=== PATIENT | female | born 1935 | race Caucasian/White ===

== ENCOUNTER → 2017-08-09 | Outpatient (CLI) | payer OTHER ==
[~2017-08-09] MED LIST: ASPI81EC; CALCA500CH PO; CHOL10002 PO; FISH1000 PO; FOLI400 PO; GABA300 PO; HYDACE10 PO; HYDCHL12.5 PO; HYDROMET SYRUP PO; IBUPROFEN 200MG PO; LOSA50 PO; METO50; MULVIT PO; MULVITB&C; OMEP20ER PO
== END | disposition home or self-care (01) ==
LOC: LAB 12:15
DX: N39.0 Urinary tract infection, site not specified (principal); R30.0 Dysuria
CPT/HCPCS: 87077; 87086

== ENCOUNTER → 2017-12-31 | Outpatient (CLI) | payer OTHER | END | disposition home or self-care (01) | LOC: LAB 13:22 → LAB SHORT 13:22 | DX: Z00.00 Encounter for general adult medical examination without abnormal findings (principal); I12.9 Hypertensive chronic kidney disease with stage 1 through stage 4 chronic kidney disease, or unspecified chronic kidney disease; N18.3 Chronic kidney disease, stage 3 (moderate); D63.1 Anemia in chronic kidney disease; F32.9 Major depressive disorder, single episode, unspecified; E78.00 Pure hypercholesterolemia, unspecified; E66.01 Morbid (severe) obesity due to excess calories; Z87.19 Personal history of other diseases of the digestive system | CPT/HCPCS: 82043 ==

== ENCOUNTER → 2018-02-17 | Outpatient (CLI) | payer OTHER | END | disposition home or self-care (01) | LOC: LAB 18:18 → LAB SHORT 18:18 | DX: N39.0 Urinary tract infection, site not specified (principal) | CPT/HCPCS: 87086 ==

== ENCOUNTER → 2018-09-02 | Outpatient (CLI) | payer OTHER ==
[~2018-09-02] MED LIST changes: +ALBU90OI INH; -ASPI81EC; +Aspirin EC81 MG PO; -CALCA500CH PO; +Complex B-1001 EACH PO; +DOCU100 PO; +Elemental Calc600 MG PO; +Estrace Vagin42.5 GM VAG; +FISH OIL 1,0001 EAC1 PO; -FISH1000 PO; +FOLI1 PO; -FOLI400 PO; +FURO20 PO; +Ferrous Sulfat325 M2 PO; +Flonase 0.05% N16 GM; +HYDR10 PO; +Isosorbide Mono60 MG PO; +LOSA25 PO; -LOSA50 PO; -MULVIT PO; -MULVITB&C; +Multivitamin1 EAC1 PO; +Nitroglycerin0.4 MG SL; -OMEP20ER PO; +OMEPRAZOLE MAGN20 MG PO; +Oxycodone-Apap1 EAC3 PO; +SODBIC650 PO
[2018-09-02 12:26] LABS: U Amphetamine Screen Not Detected; U Barbituate Screen Not Detected; U Benzodiazapine Screen Not Detected; U Buprenorphine Screen Not Detected; U Cannabinoids Screen Not Detected; U Cocaine Screen Not Detected; U Methadone Screen Not Detected; U Methamphetamine Screen Not Detected; U Opiates Screen DETECTED; U Oxycodone Screen DETECTED; U Phencyclidine Screen Not Detected; U Propoxyphene Screen Not Detected
== END ==
LOC: LAB SHORT 11:56 → LAB 11:56
PROVIDERS: Internal Medicine
DX: Z51.81 Encounter for therapeutic drug level monitoring (principal); Z79.899 Other long term (current) drug therapy
CPT/HCPCS: G0480

== ENCOUNTER 2018-09-18 11:00 | Observation (INO) | payer OTHER ==
[~2018-09-18] VITALS: Ht 157.5 cm; Wt 98.7 kg
[~2018-09-18 11:00] MED LIST changes: -ALBU90OI INH; -DOCU100 PO; -Estrace Vagin42.5 GM VAG; -FURO20 PO; -Ferrous Sulfat325 M2 PO; -Flonase 0.05% N16 GM; -HYDR10 PO; -Isosorbide Mono60 MG PO; -Nitroglycerin0.4 MG SL; -Oxycodone-Apap1 EAC3 PO; -SODBIC650 PO
[2018-09-18 11:36] LABS: BASOPHILS ABSOLUTE AUTO 0.04 K/mm3 (0.00-0.23); BASOPHILS PERCENT AUTO 1 % (0-2); EOSINOPHILS ABSOLUTE AUTO 0.19 K/mm3 (0.00-0.68); EOSINOPHILS PERCENT AUTO 3 % (0-6); Hematocrit 38.3 % (33.0-51.0); Hemoglobin 12.3 g/dL (11.5-16.0); IMMATURE GRAN ABSOLUTE AUTO 0.02 K/mm3 (0.00-0.10); IMMATURE GRAN PERCENT AUTO 0 % (0-1); LYMPHOCYTES ABSOLUTE AUTO 2.04 K/mm3 (0.84-5.20); LYMPHOCYTES PERCENT AUTO 33 % (21-46); MONOCYTES ABSOLUTE AUTO 0.45 K/mm3 (0.16-1.47); MONOCYTES PERCENT AUTO 7 % (4-13); Mean Corpuscular HGB 30.7 pg (26.0-34.0); Mean Corpuscular HGB Conc 32.1 g/dL (31.5-36.5); Mean Corpuscular Volume 96 fL (80-100); Mean Platelet Volume 8.7 fL (9.1-12.4); NEUTROPHILS ABSOLUTE AUTO 3.53 K/mm3 (1.96-9.15); NEUTROPHILS PERCENT AUTO 56 % (41-73); Platelet Count 312 K/mm3 (150-400); RDW Coefficient Variation 12.8 % (11.7-14.2); RDW Standard Deviation 45.3 fL (35.1-46.3); Red Blood Cell Count 4.01 M/mm3 (3.80-5.20); White Blood Cell Count 6.27 K/mm3 (4.00-11.30)
[2018-09-18 12:05] LABS: Alanine Aminotransfer (ALT/SGP 22 U/L (12-78); Albumin, Blood 3.6 g/dL (3.4-5.0); Albumin/Globulin Ratio 0.9 (0.8-1.8); Alk Phos 62 U/L (50-136); Anion Gap 9 mmol/L (6-16); Aspartate Aminotrans (AST/SGOT 21 U/L (12-37); Bilirubin, Total 0.5 mg/dL (0.1-1.0); Blood Urea Nitrogen 12 mg/dL (8-24); Bun/Creatinine Ratio 10.5 (12.0-20.0); CO2, Blood 24 mmol/L (21-32); Calcium, Blood 9.2 mg/dL (8.5-10.1); Chloride, Blood 105 mmol/L (98-108); Creatinine, Blood 1.14 mg/dL (0.40-1.00); Globulin, Blood 3.9 g/dL (2.2-4.0); Glomerular Filtration Rate 48 (60-); Glucose, Blood 106 mg/dL (70-99); Potassium, Blood 3.8 mmol/L (3.5-5.5); Sodium, Blood 138 mmol/L (136-145); Total Protein, Blood 7.5 g/dL (6.4-8.2); Troponin I <0.015 ng/mL (0.000-0.040)
[2018-09-18] MEDS ORDERED: Estrace Vagin42.5 GM VAG (13:30)
[2018-09-18] MEDS ORDERED: Ferrous Sulfat325 M2 PO (13:31)
[2018-09-18] MEDS ORDERED: SODBIC650 PO (13:31)
[2018-09-18] MEDS ORDERED: DOCU100 PO (13:32)
[2018-09-18] MEDS ORDERED: Oxycodone-Apap1 EAC3 PO (13:33)
[2018-09-18] MEDS ORDERED: Isosorbide Mono60 MG PO (13:34)
[2018-09-18] MEDS ORDERED: FURO20 PO (13:35)
[2018-09-18] MEDS ORDERED: Nitroglycerin0.4 MG SL (13:36)
[2018-09-18] MEDS ORDERED: Flonase 0.05% N16 GM (13:37)
[2018-09-18] MEDS ORDERED: ALBU90OI INH (13:38)
--- NOTE | 2018-09-18 16:23 | NUR ---
Echocardiogram completed.
--- NOTE | 2018-09-18 17:55 | NUR ---
SHIFT SUMMARY NOTE: PATIENT CONTINUES TO BE ALERT AND ORIENTED, DENIES SHORTNESS OF BREATH, REPORTS CONTINUOUS PAIN ALL OVER AND GENERALIZED, RECEIVES DILAUDID EVERY 4 HOURS FOR PAIN PER PAIN CONTRACT, USES BEDPAN AND VOIDS WITHOUT ANY PROBLEMS, ATE ALL MEALS WITH GOOD APPETITE, WILL HAVE FAMILY MEMBER BRING IN HOME MEDICATION, ALBE TO MAKE NEEDS KNOWN, FOR DETAILS SEE SHIFT ASSESSMENT DOCUMENTATION AND NURSES NOTES, CALL LIGHT IN REACH, WILL CONTINUE TO MONITOR AND GIVE REPORT TO ONCOMING HOTEL NIGHT AUDITOR.
--- NOTE | 2018-09-18 17:55 | NUR ---
PATIENT ARRIVED TO ROOM 16 AT 1635 AFTER HAVING RECEIVED TELEPHONE REPORT FROM HIALEY ZHENG, ED, PATIENT ARRIVED VIA STRETCHER, ABLE TO STAND AND AMBULATE TO BED, PATIENT HAS OWN WALKER IN ROOM, ABLE TO USE BEDSIDE COMMODE WITH ONE ASSIST, PATIENT IS ALERT AND ORIENTED, DENIES PAIN AT TIME OF ARRIVAL AND REPORTS SLIGHT SOB WITH EXERTION, EDEMA NOTED ON BILATERAL LOWER EXTREMITIES, PATIENT PLACED ON MONITOR AND BLOOD PRESSURES ARE BETWEEN 170S TO 190S SBP, PATIENT'S FAMILY AT BEDSIDE, PATIENT IS EATING DINNER WITH GOOD APPETITE, PIV IN L FA, SALINE LOCKED, PATIENT WAS ORIENTED TO ROOM AND NEW ENVIRONMENT AND INSTRUCTED ON USE OF CALL LIGHT, CALL LIGHT IN REACH, FOR DETAILS SEE ADMISSION AND SHIFT HISTORY DOCUMENTATION, WILL CONTINUE TO MONITOR AND GIVE REPORT TO ONCOMING ACT TUTOR. CARDIOLOGY CONSULT WAS CALLED TO [facility] HAVE NOT HEARD BACK.
--- NOTE | 2018-09-18 18:30 | NUR ---
DR. BARBOSA RETURNED PAGE AND WILL SEE PATIENT IN THE MORNING.
--- NOTE | 2018-09-18 20:42 | NUR ---
ASSUMED CARE OF PT AT 1900. REPORT RECEIVED. PT PRESENTS IN BED. ALERT AND ORIENTED. PLEASANT AND COOPERATIVE WITH CARE AND ASSESSMENT. PT HAS NO COMPLAINTS OF CHEST PAIN OR PRESSURE. BLOOD PRESSURES WITH SBP IN 140'S. HAS RESPONDED WELL TO HYDRALAZINE PRN. CALL MADE TO RAMONITA VELAZQUEZ CONCERNING PT'S STATUS ICU VERSUS PCU. PT TO REMAIN ICU STATUS FOR THE NIGHT. WILL REVIEW CHART AND PLAN OF CARE FOR THIS PT.
--- NOTE | 2018-09-19 01:25 | NUR ---
PT HAS BEEN UP TO BEDSIDE COMMODE SEVERAL TIMES THIS SHIFT. BP'S REMAIN WITH SBP < 170. NO COMPLAINTS OF CHEST PAIN OR PRESSURE. IS ABLE TO TAKE PM MEDICATIONS WITHOUT ISSUES. WILL CONTINE TO MONITOR PT.
[2018-09-19 03:34] LABS: BASOPHILS ABSOLUTE AUTO 0.03 K/mm3 (0.00-0.23); BASOPHILS PERCENT AUTO 0 % (0-2); EOSINOPHILS ABSOLUTE AUTO 0.07 K/mm3 (0.00-0.68); EOSINOPHILS PERCENT AUTO 1 % (0-6); Hematocrit 34.6 % (33.0-51.0); Hemoglobin 11.3 g/dL (11.5-16.0); IMMATURE GRAN ABSOLUTE AUTO 0.01 K/mm3 (0.00-0.10); IMMATURE GRAN PERCENT AUTO 0 % (0-1); LYMPHOCYTES ABSOLUTE AUTO 2.17 K/mm3 (0.84-5.20); LYMPHOCYTES PERCENT AUTO 31 % (21-46); MONOCYTES ABSOLUTE AUTO 0.52 K/mm3 (0.16-1.47); MONOCYTES PERCENT AUTO 7 % (4-13); Mean Corpuscular HGB 30.6 pg (26.0-34.0); Mean Corpuscular HGB Conc 32.7 g/dL (31.5-36.5); Mean Corpuscular Volume 94 fL (80-100); Mean Platelet Volume 8.7 fL (9.1-12.4); NEUTROPHILS ABSOLUTE AUTO 4.24 K/mm3 (1.96-9.15); NEUTROPHILS PERCENT AUTO 60 % (41-73); Platelet Count 291 K/mm3 (150-400); Red Blood Cell Count 3.69 M/mm3 (3.80-5.20); White Blood Cell Count 7.04 K/mm3 (4.00-11.30)
[2018-09-19 03:49] LABS: Calcium, Blood 8.7 mg/dL (8.5-10.1); Creatinine, Blood 1.2 mg/dL (0.40-1.00); Potassium, Blood 3.9 mmol/L (3.5-5.5)
--- NOTE | 2018-09-19 04:06 | NUR ---
PT CONTINUES TO REST WITHOUT COMPLAINTS OF CHEST PAIN OR PRESSURE. BLOOD PRESSURES HAVE REMAINED WITHIN NORMAL LIMITS. DENIES COMPLAINTS AT THIS TIME. WILL CONTINUE TO MONITOR.
--- NOTE | 2018-09-19 08:00 | NUR ---
ASSESSMENT- PT AWAKE, ALERT, COOPERATIVE. DENIES ANY CHEST PAIN OR PRESSURE. STATES HAS "MILD" HEADACHE, REFUSES RX. BP STABLE. SL INTACT.
--- NOTE | 2018-09-19 08:56 | NUR ---
DR. TOUSSAINT HERE-PLANS FOR DISCHARGE WITH FOLLOW UP STRESS TEST. PT DENIES CHEST PAIN OR PRESSURE. STATES HEADACHE RESOLVED. DOES C/O SOME DIZZINESS. ATE BREAKFAST.
[2018-09-19] MEDS ORDERED: HYDR10 PO (10:00)
--- NOTE | 2018-09-19 10:44 | NUR ---
UPDATE TO DR. TOUSSAINT. PLANS FOR STRESS TEST OCTOBER 16 AT 1200 AND OCTOBER 17 AT 1130. IS ON CANCELLATION LIST. PT AGREEABLE. FOLLOW UP APPT WITH DR. DONALDSON SATURDAY AND DR. WALLIS SATURDAY. BP STABLE, 140'S. PLANS TO START NEW BLOOD PRESSURE MEDICINE TODAY. CALLED TO [facility]. REVIEWED PLANS WITH PT-STATES UNDERSTANDING. QUESTIONS ANSWERED. PT WILL CONTINUE TO MONITOR OWN BLOOD PRESSURE AT HOME. PIV D/C
== END 2018-09-19 11:23 | disposition home or self-care (01) ==
LOC: ER 11:00 → ICUW 11:01 → ER 14:37 → ICUW 14:37
PROVIDERS: Physician Assistant; ADMIT Family Medicine
DX: I16.0 Hypertensive urgency (principal); I12.9 Hypertensive chronic kidney disease with stage 1 through stage 4 chronic kidney disease, or unspecified chronic kidney disease; N18.3 Chronic kidney disease, stage 3 (moderate); G47.33 Obstructive sleep apnea (adult) (pediatric); K21.9 Gastro-esophageal reflux disease without esophagitis; I24.9 Acute ischemic heart disease, unspecified; E66.9 Obesity, unspecified; Z99.89 Dependence on other enabling machines and devices; Z88.1 Allergy status to other antibiotic agents; Z88.8 Allergy status to other drugs, medicaments and biological substances; Z88.5 Allergy status to narcotic agent; Z88.2 Allergy status to sulfonamides; Z79.899 Other long term (current) drug therapy; Z79.82 Long term (current) use of aspirin; Z68.41 Body mass index [BMI] 40.0-44.9, adult
CPT/HCPCS: 36415; 71046; 80048; 80053; 83880; 84443; 84484; 85025; 93005; 93010; 93306; 96374; 96375; 96376; 99285-25; J0360; J1650; J3010

== ENCOUNTER → 2018-09-24 | Outpatient (CLI) | payer OTHER ==
[~2018-09-24] MED LIST changes: +ALBU90OI INH; +DOCU100 PO; +Estrace Vagin42.5 GM VAG; +FURO20 PO; +Ferrous Sulfat325 M2 PO; +Flonase 0.05% N16 GM; +HYDR10 PO; +Isosorbide Mono60 MG PO; +Nitroglycerin0.4 MG SL; +Oxycodone-Apap1 EAC3 PO; +SODBIC650 PO
== END | disposition home or self-care (01) ==
LOC: LAB 11:35 → LAB SHORT 11:35
DX: R30.0 Dysuria (principal)
CPT/HCPCS: 87086; 87147

== ENCOUNTER → 2018-11-20 | Outpatient (CLI) | payer OTHER | END | disposition home or self-care (01) | LOC: LAB 11:17 → LAB SHORT 11:17 | DX: N39.0 Urinary tract infection, site not specified (principal) | CPT/HCPCS: 87086; 87147 ==

== ENCOUNTER → 2019-08-24 | Outpatient (CLI) | payer OTHER | END | disposition home or self-care (01) | LOC: LAB SHORT 18:06 → LAB 18:06 | DX: R10.11 Right upper quadrant pain (principal) | CPT/HCPCS: 87086; 87147 ==

== ENCOUNTER → 2019-09-04 | Outpatient (CLI) | payer OTHER | END | disposition home or self-care (01) | LOC: LAB 13:50 → LAB SHORT 13:50 | DX: N39.0 Urinary tract infection, site not specified (principal) | CPT/HCPCS: 87086 ==

== ENCOUNTER 2019-11-02 07:41 | Day surgery (SDC) | payer OTHER ==
[~2019-11-02] VITALS: Ht 157.5 cm; Wt 101.5 kg
--- NOTE | 2019-11-02 08:44 | NUR ---
INTO [facility] VIA WHEELCHAIR. History, Chart, Medications and Allergies reviewed before start of procedure.Patient confirms NPO status and agrees with scheduled surgery. Patient states colon prep results clear.Lungs clear T/O to Auscultation. Patient States Post-Procedure ride home has been arranged WITH SON. PRANAV WITH PATIENT.
--- NOTE | 2019-11-02 09:07 | NUR ---
11/02/19 0907 [place] Bledsoe PATIENT CONFIRMS NPO STATUS AND AGREES WITH SCHEDULED PROCEDURE. MONITOR INTACT WITH CONTINUOUS PULSE OXIMETRY AND INTERMITTENT BP. O2 VIA N/C INTACT THROUGHOUT SEDATION/PROCEDURE.3-LEAD EKG REVIEWED WITH PHYSICIAN PRIOR TO START OF PROCEDURE. History, Chart, Medications and Allergies reviewed before start of procedure. DR. SHERI MATTHEW.
--- NOTE | 2019-11-02 10:12 | NUR ---
DR. TENORIO CONSULTING WITH PT.
--- NOTE | 2019-11-02 10:50 | NUR ---
Patient up to Ambulate independently. Gait steady. Discharge instructions reviewed with patient AND PT'S SON AT [facility]. . Patient verbalizes understanding. Copy given to patient to take home.
== END 2019-11-02 10:40 | disposition home or self-care (01) ==
LOC: ORSCMMR 07:41 → ORSCSDS 08:45 → ORSCMMR 10:40 → ORSCSDS 12:45 → ORSCMMR 12:45
PROVIDERS: Student in an Organized Health Care Education/Training Program
PROC: 0DBN8ZX Excision of Sigmoid Colon, Via Natural or Artificial Opening Endoscopic, Diagnostic (ICD-10-PCS; principal; 2019-11-02 08:45)
PROC: 0DBM8ZX Excision of Descending Colon, Via Natural or Artificial Opening Endoscopic, Diagnostic (ICD-10-PCS; principal; 2019-11-02 08:45)
PROC: 0DBL8ZX Excision of Transverse Colon, Via Natural or Artificial Opening Endoscopic, Diagnostic (ICD-10-PCS; principal; 2019-11-02 08:45)
PROC: 3E0H8GC Introduction of Other Therapeutic Substance into Lower GI, Via Natural or Artificial Opening Endoscopic (ICD-10-PCS; principal; 2019-11-02 08:45)
DX: R93.5 Abnormal findings on diagnostic imaging of other abdominal regions, including retroperitoneum (principal); C18.3 Malignant neoplasm of hepatic flexure; D12.4 Benign neoplasm of descending colon; D12.5 Benign neoplasm of sigmoid colon; K57.30 Diverticulosis of large intestine without perforation or abscess without bleeding; K64.8 Other hemorrhoids; R10.9 Unspecified abdominal pain; R13.10 Dysphagia, unspecified; K21.9 Gastro-esophageal reflux disease without esophagitis; I10 Essential (primary) hypertension; N18.9 Chronic kidney disease, unspecified; G47.33 Obstructive sleep apnea (adult) (pediatric); J45.909 Unspecified asthma, uncomplicated; Z79.899 Other long term (current) drug therapy; Z79.82 Long term (current) use of aspirin
CPT/HCPCS: 88305; J2704; J7120

== ENCOUNTER 2019-11-26 14:02 | Inpatient (IN) | payer OTHER ==
[~2019-11-26] VITALS: Ht 157.5 cm; Wt 101.9 kg
[2019-12-03 03:47] LABS: BASOPHILS ABSOLUTE AUTO 0.01 K/mm3 (0.00-0.23); BASOPHILS PERCENT AUTO 0 % (0-2); EOSINOPHILS ABSOLUTE AUTO 0.01 K/mm3 (0.00-0.68); EOSINOPHILS PERCENT AUTO 0 % (0-6); Hematocrit 30.5 % (33.0-51.0); IMMATURE GRAN ABSOLUTE AUTO 0.02 K/mm3 (0.00-0.10); IMMATURE GRAN PERCENT AUTO 0 % (0-1); LYMPHOCYTES ABSOLUTE AUTO 1.82 K/mm3 (0.84-5.20); LYMPHOCYTES PERCENT AUTO 21 % (21-46); MONOCYTES ABSOLUTE AUTO 0.63 K/mm3 (0.16-1.47); MONOCYTES PERCENT AUTO 7 % (4-13); Mean Corpuscular HGB 30.1 pg (26.0-34.0); Mean Corpuscular HGB Conc 32.8 g/dL (31.5-36.5); Mean Corpuscular Volume 92 fL (80-100); Mean Platelet Volume 8.9 fL (9.1-12.4); NEUTROPHILS ABSOLUTE AUTO 6.14 K/mm3 (1.96-9.15); NEUTROPHILS PERCENT AUTO 71 % (41-73); Platelet Count 306 K/mm3 (150-400); RDW Coefficient Variation 13.9 % (11.7-14.2); RDW Standard Deviation 47.2 fL (35.1-46.3); Red Blood Cell Count 3.32 M/mm3 (3.80-5.20); White Blood Cell Count 8.63 K/mm3 (4.00-11.30)
[2019-12-03 04:08] LABS: Calcium, Blood 8.5 mg/dL (8.5-10.1); Creatinine, Blood 1.1 mg/dL (0.40-1.00); Potassium, Blood 3.8 mmol/L (3.5-5.5)
[2019-12-04 04:07] LABS: BASOPHILS ABSOLUTE AUTO 0.05 K/mm3 (0.00-0.23); BASOPHILS PERCENT AUTO 1 % (0-2); EOSINOPHILS ABSOLUTE AUTO 0.21 K/mm3 (0.00-0.68); EOSINOPHILS PERCENT AUTO 3 % (0-6); Hematocrit 28.4 % (33.0-51.0); IMMATURE GRAN ABSOLUTE AUTO 0.02 K/mm3 (0.00-0.10); IMMATURE GRAN PERCENT AUTO 0 % (0-1); LYMPHOCYTES PERCENT AUTO 30 % (21-46); MONOCYTES ABSOLUTE AUTO 0.67 K/mm3 (0.16-1.47); MONOCYTES PERCENT AUTO 8 % (4-13); Mean Corpuscular HGB 29.5 pg (26.0-34.0); Mean Corpuscular HGB Conc 31.7 g/dL (31.5-36.5); Mean Corpuscular Volume 93 fL (80-100); Mean Platelet Volume 9.2 fL (9.1-12.4); NEUTROPHILS ABSOLUTE AUTO 4.94 K/mm3 (1.96-9.15); NEUTROPHILS PERCENT AUTO 59 % (41-73); Platelet Count 270 K/mm3 (150-400); RDW Coefficient Variation 14.3 % (11.7-14.2); RDW Standard Deviation 48.8 fL (35.1-46.3); Red Blood Cell Count 3.05 M/mm3 (3.80-5.20); White Blood Cell Count 8.39 K/mm3 (4.00-11.30)
[2019-12-04 04:23] LABS: Bun/Creatinine Ratio 8.4 (12.0-20.0); Creatinine, Blood 1.07 mg/dL (0.40-1.00); Potassium, Blood 3.5 mmol/L (3.5-5.5)
== END 2019-12-04 15:10 | disposition home or self-care (01) | DRG 331 ==
LOC: SURS 12-02 05:58 → EDSTATUS 12-02 07:30 → ORSCMMR 12-02 07:30 → ORD 12-02 07:30 → MEDS 12-02 12:15 → SURS 12-03 05:58
PROVIDERS: ADMIT Surgery
PROC: 0DTF4ZZ Resection of Right Large Intestine, Percutaneous Endoscopic Approach (ICD-10-PCS; principal; 2019-12-02 07:30)
DX: C18.2 Malignant neoplasm of ascending colon (principal)
CPT/HCPCS: 36415; 80048; 85025; 94640; 94760; 97110; 97116; 97162; A9270; J0690; J1100; J1885; J2250; J2405; J2704; J3010; J7120

== ENCOUNTER 2021-06-12 07:22 | Day surgery (SDC) | payer OTHER ==
[~2021-06-12] VITALS: Ht 160 cm; Wt 108.2 kg
== END 2021-06-12 09:37 | disposition home or self-care (01) ==
LOC: ORSCSDS 07:22
PROVIDERS: Student in an Organized Health Care Education/Training Program
PROC: 0DBB8ZX Excision of Ileum, Via Natural or Artificial Opening Endoscopic, Diagnostic (ICD-10-PCS; principal; 2021-06-12 08:30)
PROC: 0DBL8ZX Excision of Transverse Colon, Via Natural or Artificial Opening Endoscopic, Diagnostic (ICD-10-PCS; principal; 2021-06-12 08:30)
DX: Z12.11 Encounter for screening for malignant neoplasm of colon (principal); Z85.038 Personal history of other malignant neoplasm of large intestine; D12.3 Benign neoplasm of transverse colon; I10 Essential (primary) hypertension; G47.33 Obstructive sleep apnea (adult) (pediatric); K57.30 Diverticulosis of large intestine without perforation or abscess without bleeding; K64.8 Other hemorrhoids; N18.30 Chronic kidney disease, stage 3 unspecified; K21.9 Gastro-esophageal reflux disease without esophagitis; D64.9 Anemia, unspecified; J45.909 Unspecified asthma, uncomplicated; E78.5 Hyperlipidemia, unspecified; E66.9 Obesity, unspecified; Z68.41 Body mass index [BMI] 40.0-44.9, adult; Z79.82 Long term (current) use of aspirin; Z79.899 Other long term (current) drug therapy
CPT/HCPCS: 88305; J2704; J7120

== ENCOUNTER → 2022-02-01 | Outpatient (CLI) | payer OTHER | END | disposition home or self-care (01) | LOC: LAB 16:15 → LAB SHORT 16:15 | DX: L82.0 Inflamed seborrheic keratosis (principal); L53.8 Other specified erythematous conditions; B37.2 Candidiasis of skin and nail | CPT/HCPCS: 87070; 87147; 87205 ==

== ENCOUNTER → 2023-06-19 | Outpatient (CLI) | payer OTHER | END | disposition home or self-care (01) | LOC: LAB 10:18 → LAB SHORT 10:18 | DX: R30.0 Dysuria (principal) | CPT/HCPCS: 87086; 87147 ==

== ENCOUNTER 2024-07-05 13:20 | Emergency (ER) | payer OTHER ==
[~2024-07-05] VITALS: Ht 162.6 cm; Wt 98.9 kg
[2024-07-05 13:56] LABS: BASOPHILS ABSOLUTE AUTO 0.03 K/mm3 (0.00-0.23); BASOPHILS PERCENT AUTO 0 % (0-2); EOSINOPHILS ABSOLUTE AUTO 0.06 K/mm3 (0.00-0.68); EOSINOPHILS PERCENT AUTO 1 % (0-6); Hematocrit 41.8 % (33.0-51.0); Hemoglobin 14.2 g/dL (11.5-16.0); IMMATURE GRAN ABSOLUTE AUTO 0.03 K/mm3 (0.00-0.10); IMMATURE GRAN PERCENT AUTO 0 % (0-1); LYMPHOCYTES ABSOLUTE AUTO 1.43 K/mm3 (0.84-5.20); LYMPHOCYTES PERCENT AUTO 17 % (21-46); MONOCYTES PERCENT AUTO 6 % (4-13); Mean Corpuscular HGB 32.6 pg (26.0-34.0); Mean Corpuscular Volume 96 fL (80-100); Mean Platelet Volume 9.6 fL (9.1-12.4); NEUTROPHILS ABSOLUTE AUTO 6.21 K/mm3 (1.96-9.15); NEUTROPHILS PERCENT AUTO 75 % (41-73); Platelet Count 258 K/mm3 (150-400); RDW Coefficient Variation 12.6 % (11.7-14.2); RDW Standard Deviation 45.1 fL (35.1-46.3); Red Blood Cell Count 4.35 M/mm3 (3.80-5.20); White Blood Cell Count 8.26 K/mm3 (4.00-11.30)
[2024-07-05 14:16] LABS: Albumin, Blood 3.8 g/dL (3.4-5.0); Bilirubin, Total 0.6 mg/dL (0.1-1.0); Bun/Creatinine Ratio 24.6 (12.0-20.0); Calcium, Blood 9.1 mg/dL (8.5-10.1); Creatinine, Blood 1.75 mg/dL (0.40-1.00); Globulin, Blood 3.9 g/dL (2.2-4.0); Potassium, Blood 2.7 mmol/L (3.5-5.5); Total Protein, Blood 7.7 g/dL (6.4-8.2)
[2024-07-05] MEDS ORDERED: Potassium Chl 20MEQ/Water100ML 100 ML IV ONE (14:40)
[2024-07-05] MEDS ORDERED: Potassium Chloride 20 MEQ TabCR PO ONE (14:40)
[2024-07-05] MEDS ORDERED: Lactated Ringer's 1,000 ML IV ONE (14:40)
[2024-07-05] MEDS ORDERED: KLOR-CON 1010 ME9 PO (16:49)
[2024-07-05 18:22] VITALS: BP 166/76
== END 2024-07-05 18:44 | disposition home or self-care (01) ==
LOC: ER 13:20
PROVIDERS: Emergency Medicine
DX: R19.7 Diarrhea, unspecified (principal); E86.0 Dehydration; E87.6 Hypokalemia; N17.9 Acute kidney failure, unspecified; N18.9 Chronic kidney disease, unspecified; I12.9 Hypertensive chronic kidney disease with stage 1 through stage 4 chronic kidney disease, or unspecified chronic kidney disease; K21.9 Gastro-esophageal reflux disease without esophagitis; Z79.899 Other long term (current) drug therapy; Z88.1 Allergy status to other antibiotic agents; Z88.2 Allergy status to sulfonamides; Z88.5 Allergy status to narcotic agent
CPT/HCPCS: 80053; 85025; 96365; 96366; 99284-25; A9270; J3480; J7120

== ENCOUNTER 2024-07-21 14:44 | Emergency (ER) | payer OTHER ==
[~2024-07-21] VITALS: Ht 160 cm; Wt 100.2 kg
[~2024-07-21 14:44] MED LIST changes: +KLOR-CON 1010 ME9 PO
[2024-07-21 16:23] LABS: BASOPHILS ABSOLUTE AUTO 0.03 K/mm3 (0.00-0.23); BASOPHILS PERCENT AUTO 0 % (0-2); EOSINOPHILS ABSOLUTE AUTO 0.05 K/mm3 (0.00-0.68); EOSINOPHILS PERCENT AUTO 1 % (0-6); Hematocrit 40.4 % (33.0-51.0); Hemoglobin 13.4 g/dL (11.5-16.0); IMMATURE GRAN ABSOLUTE AUTO 0.05 K/mm3 (0.00-0.10); IMMATURE GRAN PERCENT AUTO 1 % (0-1); LYMPHOCYTES ABSOLUTE AUTO 0.97 K/mm3 (0.84-5.20); LYMPHOCYTES PERCENT AUTO 11 % (21-46); MONOCYTES ABSOLUTE AUTO 0.49 K/mm3 (0.16-1.47); MONOCYTES PERCENT AUTO 6 % (4-13); Mean Corpuscular HGB 32.4 pg (26.0-34.0); Mean Corpuscular HGB Conc 33.2 g/dL (31.5-36.5); Mean Corpuscular Volume 98 fL (80-100); Mean Platelet Volume 9.8 fL (9.1-12.4); NEUTROPHILS ABSOLUTE AUTO 7.36 K/mm3 (1.96-9.15); NEUTROPHILS PERCENT AUTO 82 % (41-73); Platelet Count 227 K/mm3 (150-400); RDW Coefficient Variation 13.1 % (11.7-14.2); RDW Standard Deviation 47.3 fL (35.1-46.3); Red Blood Cell Count 4.14 M/mm3 (3.80-5.20); White Blood Cell Count 8.95 K/mm3 (4.00-11.30)
[2024-07-21 16:45] LABS: International Normalized Ratio 1.05; Prothrombin Time Results 11.2 Sec (9.7-11.5)
[2024-07-21 16:47] LABS: Albumin, Blood 3.4 g/dL (3.4-5.0); Albumin/Globulin Ratio 0.9 (0.8-1.8); Bilirubin, Total 0.6 mg/dL (0.1-1.0); Bun/Creatinine Ratio 14.7 (12.0-20.0); Calcium, Blood 9.3 mg/dL (8.5-10.1); Creatinine, Blood 1.63 mg/dL (0.40-1.00); Globulin, Blood 3.7 g/dL (2.2-4.0); Potassium, Blood 2.9 mmol/L (3.5-5.5); Total Protein, Blood 7.1 g/dL (6.4-8.2)
[2024-07-21] MEDS ORDERED: Potassium Chl 20MEQ/Water100ML 100 ML IV ONE (17:00)
[2024-07-21] MEDS ORDERED: Potassium Chloride 20 MEQ TabCR PO ONE (17:05)
[2024-07-21] MEDS ORDERED: NS 1,000 ML IV SCH ×2 (17:05→18:30)
[2024-07-21] MEDS ORDERED: POTA20PAC PO (18:59)
[2024-07-21 19:45] VITALS: BP 145/70
== END 2024-07-21 20:02 | disposition home or self-care (01) ==
LOC: ER 14:44
PROVIDERS: Emergency Medicine
DX: K64.4 Residual hemorrhoidal skin tags (principal); E87.6 Hypokalemia; Z79.818 Long term (current) use of other agents affecting estrogen receptors and estrogen levels; Z79.899 Other long term (current) drug therapy; Z88.2 Allergy status to sulfonamides; Z88.1 Allergy status to other antibiotic agents; Z88.8 Allergy status to other drugs, medicaments and biological substances
CPT/HCPCS: 80053; 82272; 83735; 85025; 85610; 85730; 86850; 86900; 86901; 96365; 96366; 99285-25; A9270; J3480; J7030

== ENCOUNTER 2024-07-29 12:31 | Emergency (ER) | payer OTHER ==
[~2024-07-29] VITALS: Ht 160 cm; Wt 90.7 kg
[~2024-07-29 12:31] MED LIST changes: +POTA20PAC PO
[2024-07-29 13:14] LABS: BASOPHILS ABSOLUTE AUTO 0.02 K/mm3 (0.00-0.23); BASOPHILS PERCENT AUTO 0 % (0-2); EOSINOPHILS ABSOLUTE AUTO 0.13 K/mm3 (0.00-0.68); EOSINOPHILS PERCENT AUTO 2 % (0-6); Hematocrit 35.5 % (33.0-51.0); Hemoglobin 11.7 g/dL (11.5-16.0); IMMATURE GRAN ABSOLUTE AUTO 0.05 K/mm3 (0.00-0.10); IMMATURE GRAN PERCENT AUTO 1 % (0-1); LYMPHOCYTES ABSOLUTE AUTO 0.87 K/mm3 (0.84-5.20); LYMPHOCYTES PERCENT AUTO 13 % (21-46); MONOCYTES ABSOLUTE AUTO 0.53 K/mm3 (0.16-1.47); MONOCYTES PERCENT AUTO 8 % (4-13); Mean Corpuscular HGB 32.8 pg (26.0-34.0); Mean Corpuscular Volume 99 fL (80-100); Mean Platelet Volume 9.5 fL (9.1-12.4); NEUTROPHILS ABSOLUTE AUTO 5.31 K/mm3 (1.96-9.15); NEUTROPHILS PERCENT AUTO 77 % (41-73); Platelet Count 267 K/mm3 (150-400); RDW Coefficient Variation 13.6 % (11.7-14.2); RDW Standard Deviation 50.2 fL (35.1-46.3); Red Blood Cell Count 3.57 M/mm3 (3.80-5.20); White Blood Cell Count 6.91 K/mm3 (4.00-11.30)
[2024-07-29 13:47] LABS: Albumin/Globulin Ratio 0.8 (0.8-1.8); Bilirubin, Total 0.3 mg/dL (0.1-1.0); Calcium, Blood 9.6 mg/dL (8.5-10.1); Creatinine, Blood 1.53 mg/dL (0.40-1.00); Globulin, Blood 3.7 g/dL (2.2-4.0); Potassium, Blood 4.4 mmol/L (3.5-5.5); Total Protein, Blood 6.7 g/dL (6.4-8.2)
[2024-07-29 16:56] LABS: Source, Urine Clean Catch
[2024-07-29 17:01] LABS: Appearance, Urine Cloudy (Clear); Bilirubin, Urine Neg (Neg); Blood, Urine 1+ (Neg); Color, Urine Yellow (P-Yellow); Glucose Qualitative, Urine Neg (Neg); Ketones, Urine Neg (Neg); Leukocyte Esterase, Urine 3+ (Neg); Nitrite, Urine Pos (Neg); Protein, Urine 2+ (Neg); Urobilinogen, Urine NORM (Normal)
[2024-07-29 17:13] LABS: White Blood Cells, Urine TNTC /hpf (0-5)
[2024-07-29 17:14] LABS: Bacteria Many /hpf; Squamous Epithelial Cells Mod /hpf (Few); Transitional Epithelial Cells Few /hpf (0-Rare)
[2024-07-29] MEDS ORDERED: Cephalexin Monohydrate 500 MG Cap PO ONE (17:40)
[2024-07-29] MEDS ORDERED: CEPH500 PO (17:41)
[2024-07-29 17:45] VITALS: BP 129/74
== END 2024-07-29 18:54 | disposition home or self-care (01) ==
LOC: ER 12:31
PROVIDERS: Physician Assistant
DX: N30.00 Acute cystitis without hematuria (principal); R32 Unspecified urinary incontinence; I12.9 Hypertensive chronic kidney disease with stage 1 through stage 4 chronic kidney disease, or unspecified chronic kidney disease; N18.9 Chronic kidney disease, unspecified; K21.9 Gastro-esophageal reflux disease without esophagitis; Z88.8 Allergy status to other drugs, medicaments and biological substances; Z88.1 Allergy status to other antibiotic agents; Z88.2 Allergy status to sulfonamides; Z88.5 Allergy status to narcotic agent; Z79.899 Other long term (current) drug therapy; Z79.82 Long term (current) use of aspirin
CPT/HCPCS: 51701; 80053; 81001; 83735; 85025; 87077; 87086; 87186; 99283; A9270

== ENCOUNTER 2024-08-20 16:04 | Inpatient (IN) | payer OTHER ==
[~2024-08-20] VITALS: Ht 157.5 cm; Wt 90.4 kg
[~2024-08-20 16:04] MED LIST changes: +CEPH500 PO
[2024-08-20 16:58] LABS: BASOPHILS ABSOLUTE AUTO 0.03 K/mm3 (0.00-0.23); BASOPHILS PERCENT AUTO 1 % (0-2); EOSINOPHILS ABSOLUTE AUTO 0.07 K/mm3 (0.00-0.68); EOSINOPHILS PERCENT AUTO 1 % (0-6); Hematocrit 33.8 % (33.0-51.0); Hemoglobin 11.4 g/dL (11.5-16.0); IMMATURE GRAN ABSOLUTE AUTO 0.09 K/mm3 (0.00-0.10); IMMATURE GRAN PERCENT AUTO 1 % (0-1); LYMPHOCYTES ABSOLUTE AUTO 1.34 K/mm3 (0.84-5.20); LYMPHOCYTES PERCENT AUTO 21 % (21-46); MONOCYTES ABSOLUTE AUTO 0.51 K/mm3 (0.16-1.47); MONOCYTES PERCENT AUTO 8 % (4-13); Mean Corpuscular HGB 32.6 pg (26.0-34.0); Mean Corpuscular HGB Conc 33.7 g/dL (31.5-36.5); Mean Corpuscular Volume 97 fL (80-100); Mean Platelet Volume 9.5 fL (9.1-12.4); NEUTROPHILS ABSOLUTE AUTO 4.42 K/mm3 (1.96-9.15); NEUTROPHILS PERCENT AUTO 68 % (41-73); Platelet Count 360 K/mm3 (150-400); RDW Coefficient Variation 14.5 % (11.7-14.2); RDW Standard Deviation 51.2 fL (35.1-46.3); White Blood Cell Count 6.46 K/mm3 (4.00-11.30)
[2024-08-20 17:21] LABS: Albumin/Globulin Ratio 0.8 (0.8-1.8); Bilirubin, Total 0.4 mg/dL (0.1-1.0); Bun/Creatinine Ratio 23.6 (12.0-20.0); Calcium, Blood 9.5 mg/dL (8.5-10.1); Creatinine, Blood 1.99 mg/dL (0.40-1.00); Potassium, Blood 3.3 mmol/L (3.5-5.5)
[2024-08-20 22:27] LABS: Magnesium, Blood 2.2 mg/dL (1.6-2.4)
[2024-08-20 22:29] LABS: Thyroid Stimulating Hormone 1.31 uIU/mL (0.360-4.800)
[2024-08-20 23:53] LABS: Influenza A, PCR NEGATIVE (NEGATIVE); Influenza B, PCR NEGATIVE (NEGATIVE); Resp Syncytial Virus, PCR NEGATIVE (NEGATIVE); SARS-Cov-2 (COVID-19) PCR, MMC NEGATIVE (NEGATIVE)
[2024-08-21] MEDS ORDERED: NS 1,000 ML IV SCH (00:30)
[2024-08-21] MEDS ORDERED: Potassium Chloride 20 MEQ TabCR PO ONE (00:45)
[2024-08-21] MEDS ORDERED: FLU VACC TS2024-25(6MOS UP)/PF 45 MCG/0.5 ML SYRINGE IM ONE (01:15)
[2024-08-21] MEDS ORDERED: Ondansetron HCl 2 MG / ML 2ML Vial IV PRN (01:15)
[2024-08-21] MEDS ORDERED: Sodium Bicarb 8.4% Inj 100 MEQ in Sodium Chloride 0.45% 1,000 ML IV SCH (01:45)
[2024-08-21 05:46] LABS: BASOPHILS ABSOLUTE AUTO 0.03 K/mm3 (0.00-0.23); BASOPHILS PERCENT AUTO 1 % (0-2); EOSINOPHILS ABSOLUTE AUTO 0.19 K/mm3 (0.00-0.68); EOSINOPHILS PERCENT AUTO 3 % (0-6); Hematocrit 29.7 % (33.0-51.0); Hemoglobin 9.8 g/dL (11.5-16.0); IMMATURE GRAN ABSOLUTE AUTO 0.13 K/mm3 (0.00-0.10); IMMATURE GRAN PERCENT AUTO 2 % (0-1); LYMPHOCYTES ABSOLUTE AUTO 1.95 K/mm3 (0.84-5.20); LYMPHOCYTES PERCENT AUTO 32 % (21-46); MONOCYTES ABSOLUTE AUTO 0.78 K/mm3 (0.16-1.47); MONOCYTES PERCENT AUTO 13 % (4-13); Mean Corpuscular Volume 97 fL (80-100); Mean Platelet Volume 9.3 fL (9.1-12.4); NEUTROPHILS ABSOLUTE AUTO 3.07 K/mm3 (1.96-9.15); NEUTROPHILS PERCENT AUTO 50 % (41-73); Platelet Count 324 K/mm3 (150-400); RDW Coefficient Variation 14.5 % (11.7-14.2); RDW Standard Deviation 51.2 fL (35.1-46.3); Red Blood Cell Count 3.06 M/mm3 (3.80-5.20); White Blood Cell Count 6.15 K/mm3 (4.00-11.30)
[2024-08-21 06:07] LABS: Albumin, Blood 2.5 g/dL (3.4-5.0); Albumin/Globulin Ratio 0.7 (0.8-1.8); Bilirubin, Total 0.2 mg/dL (0.1-1.0); Bun/Creatinine Ratio 23.9 (12.0-20.0); Calcium, Blood 8.9 mg/dL (8.5-10.1); Creatinine, Blood 1.8 mg/dL (0.40-1.00); Globulin, Blood 3.4 g/dL (2.2-4.0); Potassium, Blood 3.9 mmol/L (3.5-5.5); Total Protein, Blood 5.9 g/dL (6.4-8.2)
[2024-08-21 06:29] LABS: Source, Urine Straight Cath
[2024-08-21 06:38] LABS: Appearance, Urine Clear (Clear); Bilirubin, Urine Neg (Neg); Blood, Urine Neg (Neg); Color, Urine Yellow (P-Yellow); Glucose Qualitative, Urine Neg (Neg); Ketones, Urine Neg (Neg); Leukocyte Esterase, Urine 3+ (Neg); Nitrite, Urine Neg (Neg); Protein, Urine 2+ (Neg); Urobilinogen, Urine NORM (Normal)
[2024-08-21 06:57] LABS: Red Blood Cells, Urine 0-2 /hpf (0-2); Squamous Epithelial Cells Mod /hpf (Few); White Blood Cells, Urine 25-50 /hpf (0-5)
[2024-08-21 06:58] LABS: Bacteria Mod /hpf; Calcium Oxalate Crystals Rare /hpf
[2024-08-21] MEDS ORDERED: Heparin Sodium 5000 Units/ML 1ML MDV SC SCH (09:00)
[2024-08-21] MEDS ORDERED: GABA300 PO (09:04)
[2024-08-21] MEDS ORDERED: OMEP20ER PO (09:05)
[2024-08-21] MEDS ORDERED: CefTRIAXone Sodium 1,000 MG in NS 100 ML IV SCH (09:30)
[2024-08-21 15:18] LABS: Bun/Creatinine Ratio 24.8 (12.0-20.0); Calcium, Blood 8.7 mg/dL (8.5-10.1); Creatinine, Blood 1.57 mg/dL (0.40-1.00); Potassium, Blood 4.6 mmol/L (3.5-5.5)
[2024-08-21 15:53] VITALS: BP 140/78
--- NOTE | 2024-08-21 16:39 | NUR ---
PT ARRIVED AT 1550 TO ROOM. PT IS AOX2-3. PT CAN DO WHAT IS ASKED,BUT SEEMS TO NEED ASKED MULTIPLE TIMES. PEPE IN ER REPORTED MULTIPLE TIMES AND DR AYALA REQUESTED CONTACT PRECAUTIONS AND GI PANEL. PT SETTLED INTO BED AND CAll EXPLAINED BED ALARM IS IN PLACE. WILL CONTINUE TO MONITOR.
[2024-08-21 19:34] VITALS: BP 154/66
[2024-08-21] MEDS ORDERED: Lactobacil 2-S.Thermo-Bifido 1 1 Cap PO SCH (21:00)
[2024-08-21] MEDS ORDERED: Gabapentin 300 MG Cap PO SCH (21:00)
[2024-08-22 03:09] VITALS: BP 144/67
--- NOTE | 2024-08-22 04:58 | NUR ---
Pt A&O x2, could no tell time or date. VS WNL, Incontinent/Continent. Tele NSR with PVC's. Pt with no BM on this shift, Pt does not move well in bed and to weak to get OOB, awaiting PT/OT eval. Denies pain, does have some skin breakdown in groin, abdominal fold from moisture, and multiple bruises on UE, and LE's d/t falls at home.
[2024-08-22] MEDS ORDERED: Omeprazole 20 MG CapCR PO SCH (06:00)
[2024-08-22 07:50] VITALS: BP 145/81
[2024-08-22 11:05] LABS: BASOPHILS ABSOLUTE AUTO 0.04 K/mm3 (0.00-0.23); BASOPHILS PERCENT AUTO 1 % (0-2); EOSINOPHILS ABSOLUTE AUTO 0.14 K/mm3 (0.00-0.68); EOSINOPHILS PERCENT AUTO 2 % (0-6); Hematocrit 30.5 % (33.0-51.0); IMMATURE GRAN ABSOLUTE AUTO 0.13 K/mm3 (0.00-0.10); IMMATURE GRAN PERCENT AUTO 2 % (0-1); LYMPHOCYTES ABSOLUTE AUTO 1.34 K/mm3 (0.84-5.20); LYMPHOCYTES PERCENT AUTO 18 % (21-46); MONOCYTES ABSOLUTE AUTO 0.62 K/mm3 (0.16-1.47); MONOCYTES PERCENT AUTO 9 % (4-13); Mean Corpuscular HGB 31.7 pg (26.0-34.0); Mean Corpuscular HGB Conc 32.8 g/dL (31.5-36.5); Mean Corpuscular Volume 97 fL (80-100); Mean Platelet Volume 9.1 fL (9.1-12.4); NEUTROPHILS ABSOLUTE AUTO 5.01 K/mm3 (1.96-9.15); NEUTROPHILS PERCENT AUTO 69 % (41-73); Platelet Count 331 K/mm3 (150-400); RDW Coefficient Variation 14.9 % (11.7-14.2); RDW Standard Deviation 52.9 fL (35.1-46.3); Red Blood Cell Count 3.15 M/mm3 (3.80-5.20); White Blood Cell Count 7.28 K/mm3 (4.00-11.30)
[2024-08-22 11:29] LABS: Albumin, Blood 2.5 g/dL (3.4-5.0); Albumin/Globulin Ratio 0.8 (0.8-1.8); Bilirubin, Total 0.2 mg/dL (0.1-1.0); Bun/Creatinine Ratio 21.6 (12.0-20.0); Calcium, Blood 8.6 mg/dL (8.5-10.1); Creatinine, Blood 1.39 mg/dL (0.40-1.00); Globulin, Blood 3.3 g/dL (2.2-4.0); Potassium, Blood 3.4 mmol/L (3.5-5.5); Total Protein, Blood 5.8 g/dL (6.4-8.2)
[2024-08-22 14:41] LABS: Adenovirus F 40/41 Not Detected (NOT DETECT); Astrovirus Not Detected (NOT DETECT); Campylobacter Sp Not Detected (NOT DETECT); Cryptosporidium Not Detected (NOT DETECT); Cyclospora Cayetanensis Not Detected (NOT DETECT); E. Coli O157 Not Detected (NOT DETECT); Entamoeba Histolytica Not Detected (NOT DETECT); Enteroaggregative E. coli-EAEC Not Detected (NOT DETECT); Enteropathogenic E. coli-EPEC Not Detected (NOT DETECT); Enterotoxigenic E. coli-ETEC Not Detected (NOT DETECT); Giardia Lamblia Not Detected (NOT DETECT); Norovirus GI/GII Not Detected (NOT DETECT); Plesiomonas Shigelloides Not Detected (NOT DETECT); Rotavirus A Not Detected (NOT DETECT); Salmonella Sp Not Detected (NOT DETECT); Sapovirus Not Detected (NOT DETECT); Shiga Toxin-prod E. coli-STEC Not Detected (NOT DETECT); Shigella/Enteroin E. coli-EIEC Not Detected (NOT DETECT); Vibrio Cholerae Not Detected (NOT DETECT); Vibrio Sp Not Detected (NOT DETECT); Yersinia Enterocolitica Not Detected (NOT DETECT)
--- NOTE | 2024-08-22 16:16 | NUR ---
NO CHANGES IN PT STATUS TODAY. PT WORKED WITH OT, SEE NOTES FOR INFO. PT HAS HAD NO C/O PAIN DURING THE DAY. JANI IS TO GET PATIENT UP FOR ALL MEALS TO REGAIN STRENGHT. PT WILL ALSO BE SWITCHING TO A DNR. PT AND DAUGHTER HAVE NO QUESTIONS OR CONCERNS.
[2024-08-22 16:44] VITALS: BP 159/71
[2024-08-22 19:28] VITALS: BP 130/58
[2024-08-23 03:07] VITALS: BP 139/74
--- NOTE | 2024-08-23 06:27 | NUR ---
Pt slept well, A&O x4, incontinent of urine. Pt with more independence with bed mobility. VS WNL, Pt with increased wheezing and this am noted that LE edema is now pitting. tele NSR. will alert MD during am rounds.
[2024-08-23 07:44] VITALS: BP 168/105
[2024-08-23 08:43] LABS: BASOPHILS ABSOLUTE AUTO 0.05 K/mm3 (0.00-0.23); BASOPHILS PERCENT AUTO 1 % (0-2); EOSINOPHILS ABSOLUTE AUTO 0.25 K/mm3 (0.00-0.68); EOSINOPHILS PERCENT AUTO 3 % (0-6); Hematocrit 31.4 % (33.0-51.0); Hemoglobin 10.4 g/dL (11.5-16.0); IMMATURE GRAN ABSOLUTE AUTO 0.12 K/mm3 (0.00-0.10); IMMATURE GRAN PERCENT AUTO 2 % (0-1); LYMPHOCYTES ABSOLUTE AUTO 2.24 K/mm3 (0.84-5.20); LYMPHOCYTES PERCENT AUTO 31 % (21-46); MONOCYTES ABSOLUTE AUTO 0.66 K/mm3 (0.16-1.47); MONOCYTES PERCENT AUTO 9 % (4-13); Mean Corpuscular HGB 32.3 pg (26.0-34.0); Mean Corpuscular HGB Conc 33.1 g/dL (31.5-36.5); Mean Corpuscular Volume 98 fL (80-100); Mean Platelet Volume 9.1 fL (9.1-12.4); NEUTROPHILS ABSOLUTE AUTO 3.94 K/mm3 (1.96-9.15); NEUTROPHILS PERCENT AUTO 54 % (41-73); Platelet Count 318 K/mm3 (150-400); RDW Coefficient Variation 14.9 % (11.7-14.2); RDW Standard Deviation 53.4 fL (35.1-46.3); Red Blood Cell Count 3.22 M/mm3 (3.80-5.20); White Blood Cell Count 7.26 K/mm3 (4.00-11.30)
[2024-08-23 09:06] LABS: Albumin, Blood 2.6 g/dL (3.4-5.0); Albumin/Globulin Ratio 0.7 (0.8-1.8); Bilirubin, Total 0.3 mg/dL (0.1-1.0); Bun/Creatinine Ratio 15.8 (12.0-20.0); Calcium, Blood 8.7 mg/dL (8.5-10.1); Creatinine, Blood 1.33 mg/dL (0.40-1.00); Globulin, Blood 3.5 g/dL (2.2-4.0); Magnesium, Blood 2.1 mg/dL (1.6-2.4); Potassium, Blood 3.3 mmol/L (3.5-5.5); Total Protein, Blood 6.1 g/dL (6.4-8.2)
[2024-08-23] MEDS ORDERED: Furosemide 10 MG/ML 4ML Vial IV ONE (10:50)
[2024-08-23] MEDS ORDERED: Potassium Chloride 20 MEQ/15 ML UDC PO ONE (10:55)
[2024-08-23] MEDS ORDERED: Albuterol HFA200 ACT/6.7 GM INH INH PRN (11:00)
--- NOTE | 2024-08-23 15:39 | NUR ---
NO CHANGES IN PT STATUS. PT HAS NO QUESTIONS OR CONCERNS.
[2024-08-23 16:09] VITALS: BP 140/74
[2024-08-23 20:36] VITALS: BP 126/73
[2024-08-24 05:22] VITALS: BP 132/64
[2024-08-24 06:23] LABS: BASOPHILS ABSOLUTE AUTO 0.04 K/mm3 (0.00-0.23); BASOPHILS PERCENT AUTO 1 % (0-2); EOSINOPHILS ABSOLUTE AUTO 0.26 K/mm3 (0.00-0.68); EOSINOPHILS PERCENT AUTO 3 % (0-6); Hematocrit 29.7 % (33.0-51.0); Hemoglobin 9.7 g/dL (11.5-16.0); IMMATURE GRAN ABSOLUTE AUTO 0.12 K/mm3 (0.00-0.10); IMMATURE GRAN PERCENT AUTO 1 % (0-1); LYMPHOCYTES PERCENT AUTO 30 % (21-46); MONOCYTES ABSOLUTE AUTO 0.79 K/mm3 (0.16-1.47); MONOCYTES PERCENT AUTO 9 % (4-13); Mean Corpuscular HGB Conc 32.7 g/dL (31.5-36.5); Mean Corpuscular Volume 98 fL (80-100); Mean Platelet Volume 9.2 fL (9.1-12.4); NEUTROPHILS ABSOLUTE AUTO 4.84 K/mm3 (1.96-9.15); NEUTROPHILS PERCENT AUTO 56 % (41-73); Platelet Count 287 K/mm3 (150-400); RDW Standard Deviation 54.3 fL (35.1-46.3); Red Blood Cell Count 3.03 M/mm3 (3.80-5.20); White Blood Cell Count 8.65 K/mm3 (4.00-11.30)
[2024-08-24 06:44] LABS: Bun/Creatinine Ratio 13.1 (12.0-20.0); Calcium, Blood 8.5 mg/dL (8.5-10.1); Creatinine, Blood 1.37 mg/dL (0.40-1.00); Magnesium, Blood 2.2 mg/dL (1.6-2.4); Potassium, Blood 3.5 mmol/L (3.5-5.5)
[2024-08-24 07:56] VITALS: BP 142/62
[2024-08-24] MEDS ORDERED: Ipratropium/Albuterol SulF 2.5-0.5MG/3 ML Amp INH PRN (09:15)
[2024-08-24] MEDS ORDERED: Furosemide 10 MG/ML 4ML Vial IV ONE (09:15)
[2024-08-24 10:27] VITALS: BP 124/56
[2024-08-24 16:25] VITALS: BP 142/79
--- NOTE | 2024-08-24 16:48 | NUR ---
SHIFT SUMMARY- PT HAS AHD NO ACUTE CHANGE T/O THE SHIFT. SHE RECIEVED IV LASIX THIS MORNING AND HAS BEEN FREQUENTLY UP TO THE BEDSIDE COMMODE. PT HAS URGENCY WITH HER FREQUENCY AND FORGETS TO CALL, SHE HAS A Hx OF FALLS AT HOME, BED ALARM IS SET FOR PT SAFETY, SHE IS ASKED TO CALL WHEN SHE NEEDS TO GET UP. VADIM DEL TORO ORDERED PRN FOR HER, SHE WAS WHEEZY THIS AM, AND HAS A Hx OF ASTHMA.
[2024-08-24 19:50] VITALS: BP 144/66
[2024-08-25 05:13] LABS: BASOPHILS ABSOLUTE AUTO 0.04 K/mm3 (0.00-0.23); BASOPHILS PERCENT AUTO 0 % (0-2); EOSINOPHILS ABSOLUTE AUTO 0.33 K/mm3 (0.00-0.68); EOSINOPHILS PERCENT AUTO 4 % (0-6); Hematocrit 29.8 % (33.0-51.0); Hemoglobin 9.7 g/dL (11.5-16.0); IMMATURE GRAN ABSOLUTE AUTO 0.08 K/mm3 (0.00-0.10); IMMATURE GRAN PERCENT AUTO 1 % (0-1); LYMPHOCYTES ABSOLUTE AUTO 2.88 K/mm3 (0.84-5.20); LYMPHOCYTES PERCENT AUTO 31 % (21-46); MONOCYTES ABSOLUTE AUTO 0.72 K/mm3 (0.16-1.47); MONOCYTES PERCENT AUTO 8 % (4-13); Mean Corpuscular HGB 32.2 pg (26.0-34.0); Mean Corpuscular HGB Conc 32.6 g/dL (31.5-36.5); Mean Corpuscular Volume 99 fL (80-100); Mean Platelet Volume 9.3 fL (9.1-12.4); NEUTROPHILS ABSOLUTE AUTO 5.15 K/mm3 (1.96-9.15); NEUTROPHILS PERCENT AUTO 56 % (41-73); Platelet Count 272 K/mm3 (150-400); RDW Coefficient Variation 14.9 % (11.7-14.2); Red Blood Cell Count 3.01 M/mm3 (3.80-5.20)
[2024-08-25 05:57] LABS: Bun/Creatinine Ratio 11.3 (12.0-20.0); Calcium, Blood 8.7 mg/dL (8.5-10.1); Creatinine, Blood 1.33 mg/dL (0.40-1.00); Potassium, Blood 3.3 mmol/L (3.5-5.5)
[2024-08-25 07:45] VITALS: BP 128/55
[2024-08-25] MEDS ORDERED: Potassium Chloride 20 MEQ/15 ML UDC PO ONE ×2 (07:50→09:50)
[2024-08-25] MEDS ORDERED: Loperamide HCl 2 MG Cap PO PRN (13:50)
[2024-08-25] MEDS ORDERED: Miconazole Nitrate 2% 85 GM PWD TOP SCH (14:00)
[2024-08-25 15:04] VITALS: BP 132/78
--- NOTE | 2024-08-25 19:58 | NUR ---
SHIFT SUMMARY- BEDSIDE REPORT COMPLETED KARL MARSH RN. PT IN BED, CALL LIGHT IN REACH NO S&S OF DISTRESS NOTED. PT HAS HAD FREQUENT LOOSE STOOLS TODAY AND SHE RECIEVED ONE DOSE OF IMMODIUM. PLAN IS FOR POSSIBLE DC TOMORROW.
[2024-08-25 20:26] VITALS: BP 140/63
[2024-08-26 03:38] VITALS: BP 128/63
--- NOTE | 2024-08-26 04:46 | NUR ---
A&O X3-4 W/FORGETFULNESS, DENIED PAIN THIS SHIFT, UP FREQUENTLY TO BSC T/O THE NIGHT, SLEEPING AT THIS TIME, CALL LIGHT IN REACH, BED ALARM ACTIVE, WILL CONT TO MONITOR UNTIL REPORT GIVEN TO ONCOMING NURSE.
[2024-08-26 07:24] VITALS: BP 132/60
[2024-08-26] MEDS ORDERED: Furosemide 20 MG Tab PO SCH (09:00)
[2024-08-26] MEDS ORDERED: Losartan Potassium 50 MG Tab PO SCH (09:00)
[2024-08-26 10:09] VITALS: BP 124/54
[2024-08-26 12:30] LABS: BASOPHILS ABSOLUTE AUTO 0.03 K/mm3 (0.00-0.23); BASOPHILS PERCENT AUTO 0 % (0-2); EOSINOPHILS ABSOLUTE AUTO 0.38 K/mm3 (0.00-0.68); EOSINOPHILS PERCENT AUTO 4 % (0-6); Hematocrit 33.5 % (33.0-51.0); Hemoglobin 10.9 g/dL (11.5-16.0); IMMATURE GRAN ABSOLUTE AUTO 0.05 K/mm3 (0.00-0.10); IMMATURE GRAN PERCENT AUTO 1 % (0-1); LYMPHOCYTES ABSOLUTE AUTO 1.84 K/mm3 (0.84-5.20); LYMPHOCYTES PERCENT AUTO 20 % (21-46); MONOCYTES ABSOLUTE AUTO 0.56 K/mm3 (0.16-1.47); MONOCYTES PERCENT AUTO 6 % (4-13); Mean Corpuscular HGB Conc 32.5 g/dL (31.5-36.5); Mean Corpuscular Volume 98 fL (80-100); Mean Platelet Volume 9.4 fL (9.1-12.4); NEUTROPHILS ABSOLUTE AUTO 6.44 K/mm3 (1.96-9.15); NEUTROPHILS PERCENT AUTO 69 % (41-73); Platelet Count 257 K/mm3 (150-400); RDW Coefficient Variation 14.7 % (11.7-14.2); RDW Standard Deviation 53.4 fL (35.1-46.3); Red Blood Cell Count 3.41 M/mm3 (3.80-5.20)
[2024-08-26 13:05] LABS: Bun/Creatinine Ratio 12.2 (12.0-20.0); Calcium, Blood 9.1 mg/dL (8.5-10.1); Creatinine, Blood 1.15 mg/dL (0.40-1.00); Potassium, Blood 3.7 mmol/L (3.5-5.5)
[2024-08-26 15:33] VITALS: BP 141/65
--- NOTE | 2024-08-26 17:43 | NUR ---
SHIFT SUMMARY- PT ALERT AND ORIENTED, 1PA WITH TRANSFERS TO THE BSC. ATTEMPTED TO GET THE PT TO THE SHOWER AND SHE STATES HER LEGS ARE TOO WEAK TO GET IN THE SHOWER. SHE RECIEVED A FULL BED BATH. THE RASH IN HER GROIN WAS PARTICULARLY DIFFICULT TO CLEAN. IT WAS CLEANED AND DRIED AND POWDER WAS APPLIED. PT WAS EVALUATED FOR PLACEMENT BY HEATHER ASSISTED TODAY, IT SOUNDED LIKE PLACEMENT APPEARED TO BE POSSIBLE. PT DAUGHTER WAS WITH THEM AND WAS FACILITATING THE PLAN FOR PT REHOMING. CARE MANAGEMENT NOT AVAILABLE TO CALL AT THAT TIME. PT IS CURRENTLY SITTING UP IN THE CHAIR, CALL LIGHT IN REACH NO S&S OF DISTRESS, STRICT I'S AND O'S WELL DAILY WEIGHTS ORDERED. WEIGHT OBTAINED TODAY VIA STANDING SCALE, WHILE STAFF HELD THE TELE BOX.
[2024-08-26 19:43] VITALS: BP 147/66
[2024-08-26] MEDS ORDERED: Sodium Bicarbonate 650 MG Tab PO SCH (21:00)
[2024-08-27 04:04] VITALS: BP 129/54
[2024-08-27 05:34] LABS: Calcium, Blood 8.9 mg/dL (8.5-10.1); Creatinine, Blood 1.15 mg/dL (0.40-1.00); Potassium, Blood 3.6 mmol/L (3.5-5.5)
--- NOTE | 2024-08-27 06:24 | NUR ---
A&OX4, VSS, DENIES PAIN THIS SHIFT, UP WITH SBA ASSIST TO BSC, SLEEPING AT THIS TIME, CALL LIGHT IN REACH, WILL CONT TO MONITOR UNTIL REPORT GIVEN TO ONCOMING NURSE.
[2024-08-27 07:28] VITALS: BP 125/67
[2024-08-27 15:20] VITALS: BP 129/56
--- NOTE | 2024-08-27 18:08 | NUR ---
SHIFT SUMMARY: PT IS A&OX4/1 PERSON ASSIST WITH FWW. SHE CAN BE SLOW TO RESPONSE AT TIMES DUE TO TRYING TO RECALL ANSWERS TO QUESTIONS SUCH WHEN ASKED HER BIRTHDAY TODAY SHE HAD A HARD TIME REMEMBERING HER YEAR. SHE CALLS APPROPRIATELY, HAS BE CONTINENT TO THE BEDSIDE COMMODE. SHE HAS BEEN SLEEPING MOST OF THE DAY. SHE IS CURRENTLY UP FOR DINNER IN THE BEDSIDE CHAIR, CALL LIGHT IN REACH, CHAIR ALARM IN PLACE, NO SIGNS OR SYMPTOMS OF DISTRESS. HER IV AND TELE WERE D/C'D TODAY, AWAITING PLACEMENT. PLAN OF CARE ONGOING.
[2024-08-27] MEDS ORDERED: Acetaminophen 500 MG Tab PO PRN (22:00)
[2024-08-28 04:43] VITALS: BP 110/55
--- NOTE | 2024-08-28 05:53 | NUR ---
A&O, NO ACUTE CHANGES, DENIED PAIN THIS SHIFT, SLEPT T/O THE NIGHT & SLEEPING AT THIS TIME, CALL LIGHT IN REACH, WILL CONT TO MONITOR UNTIL REPORT GIVEN TO ONCOMING NURSE.
[2024-08-28 07:52] VITALS: BP 131/59
[2024-08-28 15:10] VITALS: BP 120/65
--- NOTE | 2024-08-28 17:21 | NUR ---
SHIFT SUMMARY: NO EVENTS OR CHANGES WITH THE PATIENT THROUGHOUT THE SHIFT. SHE HAS BEEN MORE MOBILITY TODAY AND TOOK A SHOWER. SHE HASN'T SLEPT MUCH TODAY YESTERDAY. SHE IS AWAITING PLACEMENT AT [facility]; [facility] Saturday08/31/24. SHE IS SITTING AT EDGE OF BED, CALL LIGHT WITHIN REACH, BED ALARM AND CHAIR ALARMS IN USE, NO SIGNS OR SYMPTOMS OF DISTRESS, PLAN OF CARE ONGOING.
[2024-08-28 20:53] VITALS: BP 130/54
[2024-08-29 03:18] VITALS: BP 111/50
--- NOTE | 2024-08-29 05:37 | NUR ---
SHIFT SUMMARY PT A&Ox4. TALKATIVE AND PLEASANT. NO ACUTE CHANGES. PT UP TO BSC TWICE DURING THE NIGHT. PT MEDICATED WITH TYLENOL FOR PAIN IN THE FEET PER EMAR WITH GOOD EFFECT. VSS. BED ALARM ON. BED IN LOWEST POSITION AND CALL LIGHT IN REACH.
[2024-08-29 06:41] LABS: Bun/Creatinine Ratio 15.5 (12.0-20.0); Calcium, Blood 8.8 mg/dL (8.5-10.1); Creatinine, Blood 1.29 mg/dL (0.40-1.00); Potassium, Blood 3.5 mmol/L (3.5-5.5)
[2024-08-29 07:45] VITALS: BP 115/45
[2024-08-29] MEDS ORDERED: Benzonatate 100 MG Cap PO PRN (11:40)
[2024-08-29 15:22] VITALS: BP 109/64
--- NOTE | 2024-08-29 16:38 | NUR ---
SHIFT SUMMARY: NO EVENTS OR CHANGES WITH THE PATIENT THROUGHOUT THE SHIFT. SHE HAS BEEN GETTING UP TO HER BEDSIDE CHAIR FOR MEALS AND TO WORK ON HER WORD SEARCH. SHE IS CURRENTLY IN BED, RESTING, CALL LIGHT WITHIN REACH, BED ALARM ON, RESPIRATIONS EVEN AND UNLABORED, NO SIGNS OR SYMPTOMS OF DISTRESS, PLAN OF CARE ONGOING.
[2024-08-29 19:24] VITALS: BP 127/61
[2024-08-30 02:55] VITALS: BP 116/48
--- NOTE | 2024-08-30 04:59 | NUR ---
SHIFT SUMMARY PT A&Ox4 AND PLEASANT. MEDICATED WITH TYLENOL FOR GENERALIZED PAIN THAT PT STATES IS FROM LAYING IN THE BED FOR SO MANY DAYS. NO ACUTE CHANGES. VSS. BED ALARM ON. BED IN LOWEST POSITION AND CALL LIGHT IN REACH.
[2024-08-30 06:32] LABS: Bun/Creatinine Ratio 18.1 (12.0-20.0); Creatinine, Blood 1.27 mg/dL (0.40-1.00); Potassium, Blood 3.7 mmol/L (3.5-5.5)
[2024-08-30 07:22] VITALS: BP 101/56
[2024-08-30 15:42] VITALS: BP 123/51
--- NOTE | 2024-08-30 18:31 | NUR ---
SHIFT SUMMARY PT AXO, PLEASANT AND COOPERATIVE WITH CARE THOUGH FORGETFUL AT TIMES. UP TO VOID WITH URGENCY AND FREQUENCY THROUGHOUT THE SHIFT. VSS. PT UP TO CHAIR FOR MEALS. NO ACUTE CHANGES THIS SHIFT. BED IN LOW POSITION, CALL LIGHT WITHIN REACH. BED ALARM ON.
[2024-08-30 19:31] VITALS: BP 130/59
[2024-08-31 02:59] VITALS: BP 120/56
--- NOTE | 2024-08-31 06:15 | NUR ---
SHIFT SUMMARY PATIENT IS ALERT AND ORIENTED. PATIENT HAS HAD NO ACUTE EVENTS THIS SHIFT. VITAL SIGNS REVIEWED. PATIENT HAS NO COMPLAINTS OF PAIN, NAUSEA, SOB OR VOMITTING THIS SHIFT. PATIENT IS PLANNING ON DISCHARGE TO [place] TODAY. PATIENT HAS BEEN GETTING UP FREQUENTLY TO URINATE WITH URGENCY. BED IN LOCKED AND LOWEST POSITION. CALL LIGHT IN PLACE.
[2024-08-31 07:45] VITALS: BP 105/53
[2024-08-31] MEDS ORDERED: LOSA50 PO (14:29)
[2024-08-31] MEDS ORDERED: FURO20 PO (14:29)
[2024-08-31] MEDS ORDERED: ONDA4 PO (14:31)
[2024-08-31] MEDS ORDERED: MICONAZOLE NITR85 GM TOP (14:31)
[2024-08-31] MEDS ORDERED: VISBIOME 112.51 EACH PO (14:31)
--- NOTE | 2024-08-31 15:04 | NUR ---
PT DISCHARGED PT DISCHARGED TO HOME. DC INSTRUCTIONS GIVEN TO THE PT BY KHALIDA HART. THE PT WAS TRANSFERED VIA WHEELCHAIR ACCOMPANIED BY THE TRANSPORT TANK TECHNICIAN AND HER SON.
== END 2024-08-31 15:22 | DRG 682 ==
LOC: ER 16:04 → ERHOLD 08-21 01:13 → MEDS 08-21 15:51
PROVIDERS: Family Medicine; Physician Assistant; Student in an Organized Health Care Education/Training Program; ADMIT Internal Medicine
DX: N17.9 Acute kidney failure, unspecified (principal); G93.41 Metabolic encephalopathy; E87.20 Acidosis, unspecified; N18.32 Chronic kidney disease, stage 3b; I12.9 Hypertensive chronic kidney disease with stage 1 through stage 4 chronic kidney disease, or unspecified chronic kidney disease; G62.9 Polyneuropathy, unspecified; E87.6 Hypokalemia; E87.70 Fluid overload, unspecified; E86.0 Dehydration; R29.6 Repeated falls; G89.29 Other chronic pain; Z96.653 Presence of artificial knee joint, bilateral; D63.1 Anemia in chronic kidney disease; R60.0 Localized edema; K21.9 Gastro-esophageal reflux disease without esophagitis; Z88.8 Allergy status to other drugs, medicaments and biological substances; Z88.5 Allergy status to narcotic agent; Z88.2 Allergy status to sulfonamides; Z88.1 Allergy status to other antibiotic agents; Z79.82 Long term (current) use of aspirin; Z85.038 Personal history of other malignant neoplasm of large intestine; Z90.49 Acquired absence of other specified parts of digestive tract; Z98.1 Arthrodesis status
CPT/HCPCS: 0241U; 36415; 70450; 80048; 80053; 81001; 83735; 84443; 85025; 87077; 87086; 87186; 87507; 93005; 93010; 94640; 94664; 94760; 96360; 96361; 97110; 97116; 97162; 97165; 97530; 97535; 99285-25; A9270; J0696; J1644; J1940; J7030

== ENCOUNTER 2024-11-13 13:43 | Emergency (ER) | payer OTHER ==
[~2024-11-13] VITALS: Ht 160 cm; Wt 97.1 kg
[~2024-11-13 13:43] MED LIST changes: +LOSA50 PO; +MICONAZOLE NITR85 GM TOP; +OMEP20ER PO; +ONDA4 PO; +VISBIOME 112.51 EACH PO
[2024-11-13 14:24] LABS: BASOPHILS ABSOLUTE AUTO 0.04 K/mm3 (0.00-0.23); BASOPHILS PERCENT AUTO 1 % (0-2); EOSINOPHILS ABSOLUTE AUTO 0.21 K/mm3 (0.00-0.68); EOSINOPHILS PERCENT AUTO 3 % (0-6); Hematocrit 36.1 % (33.0-51.0); Hemoglobin 11.3 g/dL (11.5-16.0); IMMATURE GRAN ABSOLUTE AUTO 0.01 K/mm3 (0.00-0.10); IMMATURE GRAN PERCENT AUTO 0 % (0-1); LYMPHOCYTES PERCENT AUTO 55 % (21-46); MONOCYTES ABSOLUTE AUTO 0.62 K/mm3 (0.16-1.47); MONOCYTES PERCENT AUTO 10 % (4-13); Mean Corpuscular HGB 30.6 pg (26.0-34.0); Mean Corpuscular HGB Conc 31.3 g/dL (31.5-36.5); Mean Corpuscular Volume 98 fL (80-100); Mean Platelet Volume 10.4 fL (9.1-12.4); NEUTROPHILS ABSOLUTE AUTO 1.95 K/mm3 (1.96-9.15); NEUTROPHILS PERCENT AUTO 31 % (41-73); Platelet Count 194 K/mm3 (150-400); RDW Coefficient Variation 13.4 % (11.7-14.2); RDW Standard Deviation 48.1 fL (35.1-46.3); Red Blood Cell Count 3.69 M/mm3 (3.80-5.20); White Blood Cell Count 6.33 K/mm3 (4.00-11.30)
[2024-11-13 14:44] LABS: Albumin, Blood 3.7 g/dL (3.4-5.0); Albumin/Globulin Ratio 1.1 (0.8-1.8); Bilirubin, Total 0.3 mg/dL (0.1-1.0); Bun/Creatinine Ratio 13.5 (12.0-20.0); Calcium, Blood 8.6 mg/dL (8.5-10.1); Creatinine, Blood 1.78 mg/dL (0.40-1.00); Globulin, Blood 3.3 g/dL (2.2-4.0); Potassium, Blood 5.5 mmol/L (3.5-5.5)
[2024-11-13 16:00] VITALS: BP 129/64
== END 2024-11-13 16:07 | disposition home or self-care (01) ==
LOC: ER 13:43
PROVIDERS: Physician Assistant
DX: R79.9 Abnormal finding of blood chemistry, unspecified (principal); I10 Essential (primary) hypertension; K21.9 Gastro-esophageal reflux disease without esophagitis; Z88.8 Allergy status to other drugs, medicaments and biological substances; Z88.1 Allergy status to other antibiotic agents; Z88.2 Allergy status to sulfonamides; Z88.5 Allergy status to narcotic agent; Z88.6 Allergy status to analgesic agent; Z79.891 Long term (current) use of opiate analgesic; Z79.899 Other long term (current) drug therapy; Z79.84 Long term (current) use of oral hypoglycemic drugs; Z79.82 Long term (current) use of aspirin; Z79.51 Long term (current) use of inhaled steroids; Z16.32 Resistance to antifungal drug(s); Z79.1 Long term (current) use of non-steroidal anti-inflammatories (NSAID)
CPT/HCPCS: 80053; 85025; 93005; 93010; 99283-25